=== PATIENT | male | born 1980 | race Caucasian/White ===

== ENCOUNTER 2017-12-28 12:36 | Emergency (ER) | payer MEDICAID ==
[~2017-12-28] VITALS: Ht 175.3 cm; Wt 105.0 kg
[~2017-12-28 12:36] MED LIST: ESOM20CA PO
[2017-12-28 12:40] VITALS: BP 143/98
[2017-12-28] MEDS ORDERED: ketorolac trometh inj. 60 MG/2 ML VIAL IM ONE (13:05)
[2017-12-28] MEDS ORDERED: INDO25CA PO (13:09)
== END 2017-12-28 13:16 | disposition home or self-care (01) ==
LOC: ER 12:37
DX: M25.572 Pain in left ankle and joints of left foot (principal); M10.9 Gout, unspecified; Z88.6 Allergy status to analgesic agent; Z88.8 Allergy status to other drugs, medicaments and biological substances; Z79.899 Other long term (current) drug therapy
CPT/HCPCS: 73610; 96372; 99284; J1885

== ENCOUNTER 2023-04-13 14:27 | Emergency (ER) | payer BC, MEDICAID ==
[~2023-04-13] VITALS: Ht 175.3 cm; Wt 92.3 kg
[~2023-04-13 14:27] MED LIST changes: +INDO-12 PO
[2023-04-13 14:48] VITALS: TEMP 97.7
[2023-04-13 15:17] LABS: BASOPHILS # (AUTO) 0.1 X10'3 (0-0.2); BASOPHILS % (AUTO) 0.6 % (0-1); EOSINOPHILS # (AUTO) 0.1 X10'3 (0-0.9); EOSINOPHILS % (AUTO) 1.1 % (0-6); HEMATOCRIT 41.5 % (42.0-52.0); LYMPHOCYTES # (AUTO) 2.2 X10'3 (1.1-4.8); LYMPHOCYTES % (AUTO) 20.2 % (21-51); MEAN CORPUSCULAR HEMOGLOBIN 28.7 PG (27.0-31.0); MEAN CORPUSCULAR HGB CONC 33.7 g/dL (33.0-36.5); MEAN CORPUSCULAR VOLUME 85.2 FL (78-98); MEAN PLATELET VOLUME 8.3 FL (7.4-10.4); MONOCYTES # (AUTO) 0.7 X10'3 (0-0.9); MONOCYTES % (AUTO) 6.1 % (2-12); PLATELET COUNT 386 X10'3 (140-440); RED BLOOD COUNT 4.87 X10'6 (4.70-6.10)
[2023-04-13 15:19] LABS: CLARITY,URINE CLEAR (Clear); COLOR,URINE YELLOW (Yellow); GLUCOSE, URINE NEGATIVE (Neg); KETONES,URINE NEGATIVE (Neg); LEUKOCYTE ESTERASE ,URINE NEGATIVE (Neg); NITRITES, URINE NEGATIVE (Neg); OCCULT BLOOD,URINE NEGATIVE (Neg); PH,URINE 5.5 (4.8-8.0); PROTEIN,URINE NEGATIVE (Neg); UROBILINOGEN,URINE 0.2 E.U/dL (0.2-1.0)
[2023-04-13 15:28] LABS: UA COLLECTION TYPE CLN CATCH MIDSTREAM
[2023-04-13 15:37] LABS: ALANINE AMINOTRANSFERASE 25 U/L (12-78); ALBUMIN 3.5 G/DL (3.4-5.0); ALBUMIN/GLOBULIN RATIO 0.7 (1.1-1.5); ALKALINE PHOSPHATASE 64 IU/L (46-116); ANION GAP 9 (8-16); ASPARTATE AMINO TRANSFERASE 15 U/L (10-37); BILIRUBIN,TOTAL 0.3 MG/DL (0.1-1.0); BLOOD UREA NITROGEN 10 MG/DL (7-18); BUN/CREATININE RATIO 8.7 (10.0-20.0); CALCIUM 9.3 MG/DL (8.5-10.1); CHLORIDE 105 MMOL/L (99-107); CREATININE 1.15 MG/DL (0.60-1.10); GLUCOSE 119 MG/DL (70-104); LIPASE 140 U/L (73-393); POTASSIUM 3.9 MMOL/L (3.5-5.1); SODIUM 143 MMOL/L (135-145); TOTAL CARBON DIOXIDE 29.1 MMOL/L (24-32); TOTAL PROTEIN 8.3 G/DL (6.4-8.2); eGFR 70 ML/MIN
[2023-04-13 22:00] VITALS: BP 154/91; PULSE 65; RESP 18; O2SAT 100
[2023-04-13] MEDS ORDERED: POLY119P2 PO (22:27)
[2023-04-13] MEDS ORDERED: AMOX-115 PO (22:27)
== END 2023-04-13 22:39 | disposition home or self-care (01) ==
LOC: ER 14:28
DX: R10.30 Lower abdominal pain, unspecified (principal); Z88.6 Allergy status to analgesic agent; Z88.8 Allergy status to other drugs, medicaments and biological substances; Z88.5 Allergy status to narcotic agent; Z79.899 Other long term (current) drug therapy
CPT/HCPCS: 36415; 80053; 81003; 83690; 85025; 99283; J7030